=== PATIENT | female | born 1955 ===

== ENCOUNTER 2025-08-22 14:03 | Outpatient (AMB) | payer OTHER, SELFPAY ==
--- NOTE | 2025-08-22 14:04 | A.OFFVIS_ITS ---
Intake Visit Reasons: tremor HPI Comments Details: 70 years old right-handed woman with underlying history of ulcerative colitis and type 2 diabetes, and anxiety with depression was here for tremor. She is presenting for follow-up for management of worsening tremor. The patient has a permanent tremor, which has reportedly worsened, although it is considered mild. The tremor is predominantly in the left hand. The patient also has a history of depression and anxiety, and a previous m edication prescribed for anxiety was not effective and caused side effects. The tremor is noted to worsen when attention is drawn to it. Past medical history is significant for diabetes, for which the patient takes Mounjaro. The patient also takes lisinopril and denies any history of heart conditions. Parkinson's disease has been ruled out. Review of Systems Narrative - General: Reports not feeling well. - Neurological: Reports a worsening, permanent tremor primarily in the left hand. - Psychiatric: Reports experiencing significant depression and anxiety. Physical Exam Neuro Other: Mental Status: Alert and oriented to person, place, and time. Normal attention. Normal spontaneous speech, fluency, and comprehension. Cranial Nerves: CN II: Visual doran full to confrontation, visual acuity intact. CN III, IV, : Pupils equal, round, reactive to light and accommodation. Extraocular movements are normal. CN V: Facial sensation is normal. CN VII: Facial movements symmetrical. CN VIII: Hearing intact to bedside conversation is normal. CN IX, X: Palate elevates symmetrically. CN XI: Shoulder shrug and head turn symmetrical. CN XII: Tongue midline without atrophy or fasciculations. Extrapyramidal: Full facial expressions and blinking. No rigidity. Movements are appropriate with mild left hand postural tremor Speech: Normal; no dysarthria or tremor. Assessment & Plan Assessment & Plan (1) Tremor: Code(s): R25.1 - Tremor, unspecified Category: Medical (2) Anxiety: Code(s): F41.9 - Anxiety disorder, unspecified Category: Medical Plan Impression: 1. Mild essential tremor 2. Anxiety with depression Recommendations: 1. She is advised to discuss her behavioral issues with a therapist or a psychiatrist. Sertraline that I prescribed apparently did not help. 2. Tremor is not severe enough to warrant any treatment but she and her daughter, especially her daughter, was very concerned and I have asked them to try propranolol 10 mg twice a day, which might help with tremor and also with anxiety. Medications: New propranolol 10 mg PO BID 180 tabs 0RF Coding Level of Care Code Est Pt Level 3 (76882) Diagnoses Tremor R25.1 Anxiety F41.9
--- OUTSIDE RECORDS SUMMARY | 2025-08-22 16:57 | XMS_ITS | Encounter Summary ---
Author Organization [employer] Address [address] [place] [address] Care Team Providers Care Grades 1 Through 6 Teacher Name Role Phone Kishore Rowland MD Primary Care Provider Reason for Visit * Reason Onset Date Comments Med Refill 08/15/2025 Encounter Details Date Type Department Care Team (Late st Contact Info) Description 08/15/2025 Telephone Endocrinology - [address] [phone] Victoria Dunne PA [address] [place] [address] Social History Tobacco Use Types Packs/Day Years Used Date Smoking Tobacco: Never Smokeless Tobacco: Never Alcohol Use Standard Drinks/Week Comments No 0 (1 standard drink = 0.6 oz pur e alcohol) Comments No Sex and Gender Information Value Date Recorded Sex Assigned at Female 10/19/2024 8:13 AM EST Legal Sex Female 4:35 AM EST Gender Identity Female 10/19/2024 8:13 AM EST Sexual Orientation Not on file documented as of this encounter Ordered Prescriptions Prescription Sig Dispense Quantity Refills Last Filled Start Date End Date tirzepatide (Mounjaro) 2.5 mg/0.5 mL injectionIndication s:Type 2 diabetes mellitus with diabetic neuropathy, without long-term current use of insulin (CMS/HCC V24, CMS/HCC V28) Inject 0.5 mL (2.5 mg total) under the skin every 7 (seven) days. 2 mL 08/15/2025 documented in this encounter Progress Notes * Aster Metcalf RN - 08/17/2025 4:26 PM EST Called patient, she has already picked up the med * Geri Damon - 08/15/2025 4:21 PM EST Pt calling to follow up on request for Benjamin. * Matt Smith MA - 08/15/2025 10:55 AM EST Jazmin:07/05/25 Nov:10/05/25 Lab Results Component Value Date HGBA1C 8.5 (H) 07/05/2025 Lab Results Component Value Date NA 141 07/04/2025 K 4.5 07/04/2025 CL 106 07/04/2025 CO2 30 07/04/2025 GLUCOSE 231 07/05/2025 BUN 20 07/04/2025 CREATININE 0.76 07/04/2025 CALCIUM 10.1 07/04/2025 PROT 7.3 07/04/2025 ALBUMIN 3.6 07/04/2025 BILITOT 0.6 07/04/2025 AST 24 07/04/2025 ALT 59 07/04/2025 ALKPHOS 72 07/04/2025 EGFR 83 07/04/2025 documented in this encounter Plan of Treatment Upcoming Encounters Date Type Department Care Team (Late st Contact Info) Description 08/23/2025 2:45 PM EST Consult Orthopedic Surgery - [place] [address] 175 [facility] [address] [place] [phone] Arturo Ramirez DPNikos [address] [phone] 08/31/2025 12:30 PM EST Ancillary Procedure [facility] - [address] [place] [address] 10/05/2025 2:20 PM EST Office Visit Endocrinology - [place] [address] [place] [address] Dennis Shaffer MD [address] [place] [address] 12/04/2025 1:40 PM EDT Office Visit Gastroenterology - [address] 299 [facility] [address] [place] [phone] Luna Styles PA 299 [facility] [address] [place] [address] documented as of this encounter Visit Diagnoses Diagnosis Type 2 diabetes mellitus with diabetic neuropathy, without long-term current use of insulin ([facility] V24, [facility] V28) documented in this encounter Discontinued Medications Medication Sig Discontinue Reason Start Date End Da te tirzepatide (Mounjaro) 2.5 mg/0.5 mL injectionIndications:Typ e 2 diabetes mellitus with diabetic neuropathy, without long-term current use of insulin ([facility] V24, [facility] V28) Inject 0.5 mL (2.5 mg total) under the skin every 7 (seven) days. Reorder 07/05/2025 08/15/2025 documented as of this encounter Additional Health Concerns Assessment Noted Time PHQ-9 Depression Total Score: 0 08/01/20 2:57 PM EST documented as of this encounter Care Teams Grades 1 Through 6 Teacher Relationship Specialty Start Date End Date Kishore Rowland MD [address] [place] [address] PCP - General Internal Medicine 10/27/24 documented as of this encounter
--- OUTSIDE RECORDS SUMMARY | 2025-08-22 16:57 | XMS_ITS | Encounter Summary ---
Author Organization [facility] Address [address] [place] [address] Care Team Providers Care Wage And Salary Administrator Name Role Phone Kishore Rowland MD Primary Care Provider [phone] Encounter Details Date Type Department Care Team (Late Contact Info) Description 08/02/2025 Results Follow-Up Internal Medicine - [address] [phone] Kishore Rowland MD [address] [place] [phone] Social History Tobacco Use Types Packs/Day Years [...] on file documented as of this encounter Plan of Treatment Upcoming Encounters Date Type Department Care Team (Late Contact Info) Description 08/23/2025 2:45 PM EST Consult Orthopedic Surgery - [place] [address] [phone] Arturo Ramirez, DPM [address] [phone] 08/31/2025 12:30 PM EST Ancillary Procedure [facility] - [address] [place] [address] 10/05/2025 2:20 PM EST Office Visit Endocrinology - [place] [address] [place] [address] Dennis Shaffer MD [address] [place] [address] 12/04/2025 1:40 PM EDT Office Visit Gastroenterology - 299 [facility] 299 [facility] [address] [place] [address] Luna Styles PA 299 [facility] [address] [place] [address] documented as of this encounter Visit Diagnoses Not on filedocumented in this encounter Additional Health Concerns Assessment Noted Time PHQ-9 Depression Total Score: 0 08/01/20 2:57 PM EST documented as of this encounter Care Teams Wage And Salary Administrator Relationship Specialty Start Date End Date Kishore Rowland MD [address] [place] [phone] PCP - General Internal Medicine 10/27/24 documented as of this encounter
--- OUTSIDE RECORDS SUMMARY | 2025-08-22 16:57 | XMS_ITS | Encounter Summary ---
Author Organization [facility] Address [address] [place] [address] Care Team Providers Care Heel Cutter Name Role Phone Kishore Rowland MD Primary Care Provider [phone] Encounter Details Date Type Department Care Team (Late Contact Info) Description 07/06/2025 Results Follow-Up Endocrinology - [address] [phone] Victoria Dunne PA 305 [facility] [place] [address] Social History Tobacco Use Types Packs/Day Years [...] 2:45 PM EST Consult Orthopedic Surgery - [place] [address] [phone] Arturo Ramirez, DPM [address] [phone] 08/31/2025 12:30 PM EST Ancillary Procedure [facility] - [address] [place] [address] 10/05/2025 2:20 PM EST Office Visit Endocrinology - [place] [address] [place] [address] Dennis Shaffer MD [address] [place] [address] 12/04/2025 1:40 PM EDT Office Visit Gastroenterology - 299 [facility] 299 [facility] [address] [place] [address] Luna Styles PA 299 [facility] [address] [place] [address] documented as of this encounter Visit Diagnoses Not on filedocumented in this encounter Care Teams Heel Cutter Relationship Specialty Start Date End Date Kishore Rowland MD [address] [place] [address] PCP - General Internal Medicine 10/27/24 documented as of this encounter
--- OUTSIDE RECORDS SUMMARY | 2025-08-22 16:57 | XMS_ITS | Clinical Summary ---
Author Organization [address] Address [address] [place] [phone] Phone Care Team Providers Care Call Center Rn Name Role Phone Kishore Rowland MD Primary Care Provider [phone] Allergies No known active allergies Medications blood-glucose meter kit 1 Strip by Does not apply route 2 times daily. Active psyllium (Daily Fiber, psyllium-aspar t,) 3.4 gram packet Take 1 Packet by mouth daily. 3 Active aspirin (ASPIR-81 ORAL) Take 81 mg by mouth daily. Active ferrous sulfate 325 mg (65 mg elemental iron) tablet Take 1 tablet by mouth daily. Active pravastatin (PRAVACHOL) 40 mg tablet TOME 1 TABLETA POR VIA ORAL TODOS LOS KAY AL ACOSTARSE 90 tablet 1 5 Active metFORMIN XR (GLUCOPHAGE-XR ) 500 mg 24 hr tabletIndicati ons:Type 2 diabetes mellitus with diabetic neuropathy, without long-term current use of insulin ([facility] V24, CMS/[facility] V28) TOME 2 TABLETA POR VIA ORAL DOS VECES AL KERI CON LAS COMIDAS 360 tablet 1 5 Active empagliflozin (Jardiance) 25 mg tabletIndicati ons:Type 2 diabetes mellitus with diabetic neuropathy, without long-term current use of insulin ([facility] V24, CMS/[facility] V28) TOME 1 TABLETA POR VIA ORAL TODOS LOS KAY 90 tablet 3 5 Active blood-glucose meter (Accu-Chek Guide Glucose Meter) miscIndication s:Type 2 diabetes mellitus with diabetic microalbuminur ia, without long-term current use of insulin ([facility] V24, [facility] V28) Used to monitor blood sugar 1 each 5 Active omeprazole (PriLOSEC) [address] capsule Take 1 capsule (20 mg total) by mouth 1 (one) time each day. Do not crush or chew. 90 each 3 5 Active azaTHIOprine (IMURAN) 50 mg tablet Take 3 tablets (150 mg total) by mouth 1 (one) time each day. 270 tablet 4 5 08/09/20 26 Active tirzepatide (Mounjaro) 2.5 mg/0.5 mL injectionIndic ations:Type 2 diabetes mellitus with diabetic neuropathy, without long-term current use of insulin ([facility] V24, [facility] V28) Inject 0.5 mL (2.5 mg total) under the skin every 7 (seven) days. 2 mL 5 Active omeprazole (PriLOSEC) [address] capsule Take 1 Capsule by mouth daily. Take in am on empty stomach wait 30 and then eat to activate the medication 4 08/08/20 25 Discontinu ed(Reorder ) azaTHIOprine (IMURAN) 50 mg tablet TAKE 3 TABLETS (150 MG TOTAL) BY MOUTH 1 (ONE) TIME EACH DAY. 270 tablet 4 5 08/08/20 25 Discontinu ed(Reorder ) predniSONE (DELTASONE) 10 mg tablet Please take 4 pills of prednisone for 5 days, then take 3 pills of prednisone for 5 days, then take 2 pills of prednisone for 5 days, then took 1 pill of prednisone for 5 days, then take half a pill of prednisone for 5 days 60 tablet 1 5 08/01/20 25 Discontinu ed(Patient Discharge) tirzepatide (Mounjaro) 2.5 mg/0.5 mL injectionIndic ations:Type 2 diabetes mellitus with diabetic neuropathy, without long-term current use of insulin ([facility] V24, [facility] V28) Inject 0.5 mL (2.5 mg total) under the skin every 7 (seven) days. 2 mL 5 08/15/20 25 Discontinu ed(Reorder ) polyethylene glycol (MIRALAX) 17 gram packet Take 17 g by mouth 1 (one) time each day for 3 days. 51 g 5 08/04/20 25 ondansetron (ZOFRAN) 4 mg tabletIndicati ons:Chronic nausea Take 1 tablet (4 mg total) by mouth every 8 (eight) hours if needed for nausea or vomiting for up to 7 days. 20 tablet 5 08/08/20 25 Active Problems Problem Noted Date Diagnosed Date Hydronephrosis of left kidney 10/19/2024 UC (ulcerative colitis) ([facility] V24, [facility] V2 8) 08/10/2024 Secondary hypertension 12/17/2021 Microalbuminuria 12/04/2020 Type II diabetes mellitus wi th renal manifestations ([facility] V24, [facility] V28) 12/04/2020 Type 2 diabetes mellitus wit h diabetic neuropathy ([facility] V24, [facility] V28) 07/19/2019 Overview (08/10/2024): DM type 2, uncontrolled, with neuropathy Severe obesity (BMI 35.0-39. 9) with comorbidity ([facility] V24, [facility] V28) 08/11/2016 MARK (generalized anxiety disorder) 11/28/2014 Overview (08/10/2024): 12/02 sertraline gave shakes/lossof appetite Pain, abdominal, epigastric 08/02/2014 Hyperlipidemia 05/18/2013 Overview (08/10/2024): IMO update Ulcerative colitis, universal ([facility] V24, [facility] V28) 01/27/2013 Overview (08/10/2024): Confirmed at colonoscopy and biopsy 2012. Anemia 01/25/2013 GI bleed 01/20/2013 Overview (08/10/2024): Dr lerma previous pcp Encounters Date Type Department Care Team Description 08/15/2025 Telephone Endocrinology - [address] [phone] Victoria Dunne PA 08/07/2025 4:28 PM EST - 08/07/2025 11:59 PM EST Hospital Encounter [facility] CT Scan [address] [place] [phone] Ulcerative pancolitis without complication ([facility] V24, [facility] V28); H/O renal calculi Discharge Disposition: Home or Self Care 08/02/2025 Results Follow-Up Internal Medicine - [address] [phone] Kishore Rowland MD 08/01/2025 3:40 PM EST Lab Draw Station [address] Hyperlipidemia, unspecified hyperlipidemia type 08/01/2025 3:00 PM EST Office Visit Internal Medicine - [address] [phone] Kishore Rowland MD Chest pain, unspecified type (Primary Dx); Type 2 diabetes mellitus with diabetic neuropathy, without long-term current use of insulin ([facility] V24, [facility] V28); Hyperlipidemia, unspecified hyperlipidemia type; Chronic nausea; Palpitation 07/12/[address] [facility] [address] [phone] Luna Styles PA 07/09/2025 Results Follow-Up Gastroenterology [facility] [address] [phone] Luna Styles PA 07/06/2025 Results Follow-Up Endocrinology - [address] [phone] Victoria Dunne PA 07/05/2025 2:30 PM EDT Office Visit Endocrinology [address] [phone] Victoria Dunne PA Type 2 diabetes mellitus with diabetic neuropathy, without long-term current use of insulin ([facility], [facility] V28) (Primary Dx); Secondary hypertension; Hyperlipidemia, unspecified hyperlipidemia type; Microalbuminuria 07/04/2025 3:20 PM EDT Office Visit Gastroenterology - [place] [address] [facility] [address] [place] [phone] Luna Styles PA Ulcerative pancolitis without complication ([facility] V24, [facility] V28) (Primary Dx); H/O renal calculi; LUQ abdominal pain 06/18/2025 Telephone Internal Medicine - [facility] [address] [facility] [place] [phone] Kishore Rowland MD 06/18/2025 Telephone Gastroenterology - [place] [address] [facility] [address] [place] [phone] Luna Styles PA from Last 3 Months Immunizations Immunization Administration Dates Next Due Influenza trivalent, 0.5mL ( Fluad) 65yo and older 06/30/2025,09/26/2024,06/28/2023,06/30,09/24/2020,07/19/2019 Pneumococcal conjugate 13 va lent (Prevnar 13, PCV13) 2mo and older 05/27/2018 Pneumococcal polysaccharide 23 valent (Pneumovax 23) 2yo and older 06/15/2014 Tdap Tetanus diptheria acell ular pertussis (Boostrix; Adacel) 7yo and older 04/26/2013 Surgical History Surgery Date Site/Laterality Comments HYSTERECTOMY 1998 PROCEDURE: HISTORICAL HYSTERECTOMY COLONOSCOPY 2004 PROCEDURE: MN COLONOSCOPY FLX DX W/COLLJ SPEC WHEN PFRMD; COMMENT: normal COLONOSCOPY W/ BIOPSIES 2012 PROCEDURE: MN COLONOSCOPY W/BIOPSY SINGLE/MULTIPLE; COMMENT: Firth ulcerative colitis COLONOSCOPY W/ BIOPSIES 12/27/15 PROCEDURE: MN COLONOSCOPY STOMA W/BIOPSY SINGLE/MULTIPLE; COMMENT: universal ulcerative colitis; stopped at hepatic flexure; no viral inclusion bodies. FLEXIBLE SIGMOIDOSCOPY PROCEDURE: MN SIGMOIDOSCOPY FLX DX W/COLLJ SPEC BR/WA IF PFRMD ESOPHAGOGASTRODUODENOSCOPY 2004 PROCEDURE: MN ESOPHAGOGASTRODUODENOSCOPY TRANSORAL DIAGNOSTIC; COMMENT: normal COLONOSCOPY 11/22/2019 PROCEDURE: HISTORICAL COLONOSCOPY; COMMENT: polyp Medical History Medical History Date Comments History of colon polyps 11/22/2019 DX:Histo ry of colon polyps UC (ulcerative colitis) ([facility] V24, [facility] V28) DX:UC (ulcerative colitis) ( [facility]) Esophageal reflux DX:Esophageal reflux Anxiety state DX:Anxiety state Diabetes mellitus type 2, co ntrolled, with complications ([facility], [facility] V28) DX:Diabetes mellitus type 2, controlled, with complications ([facility]) Hyperlipidemia DX:Hyperlipidemi a Essential hypertension DX:Essent ial hypertension Ulcerative colitis ([facility], [facility] V28) DX:Ulcerative colitis (HCC) Abdominal bloating DX:Abdominal bloating Colon polyp DX:Colon polyp Ulcerative colitis ([facility] V[facility], [facility] V28) DX:Ulcerative colitis (HCC) Left sided abdominal pain DX:Lef t sided abdominal pain Family History Medical History Relation Name Comments Diabetes Mother Hyperlipidemia Mother Hypertension Mother Breast cancer Other m grt aunts x 2 Relation Name Status Comments Brother Alive 6,not sure.very vague history Father lung cancer Mother Alive Other m grt aunts x 2 Sister Alive 7 Social History Tobacco Use Types Packs/Day Years Used Date Smoking Tobacco: Never Smokeless Tobacco: Never Tobacco Cessation:Counseling Given: Not Answered Alcohol Use Standard Drinks/Week Comments No 0 (1 standard drink = 0.6 oz pur e alcohol) Comments No Sex and Gender Information Value Date Recorded Sex Assigned at Female 10/19/2024 8:13 AM EST Legal Sex Female 4:35 AM EST Gender Identity Female 10/19/2024 8:13 AM EST Sexual Orientation Not on file Obstetrics History Para Term AB IAB SAB Ectopic Multiple Livin g Live Births 5 5 5 5 Date Outcome GA Total Labor Labor/2nd/3rd Weight Sex Type Anes PTL Homa A1 A5 Name Clin Term Term Term Term Term Last Filed Vital Signs Vital Sign Reading Time Taken Comments Blood Pressure 135/89 08/01/2025 2:58 PM EST aut o Pulse 93 08/01/2025 2:58 PM EST Temperature 36.1 C (96.9 F) 07/05/2025 2:32 PM EDT Respiratory Rate 18 10/19/2024 3:37 PM EST Oxygen Saturation 97% 07/04/2025 3:35 PM EDT Inhaled Oxygen Concentration - - Weight 87.3 kg (192 lb 6.4 oz) 08/01/2025 2:58 P M EST Height 160 cm (5' 3 ) 08/01/2025 2:58 PM EST Body Mass Index 34.08 08/01/2025 2:58 PM EST Plan of Treatment Upcoming Encounters Date Type Department Care Team (Late st Contact Info) Description 08/23/2025 2:45 PM EST Consult Orthopedic Surgery - [place] [address] [facility] 250 [place] [phone] Arturo Ramirez, DPM [address] [phone] 08/31/2025 12:30 PM EST Ancillary Procedure [facility] [address] [facility] 101 [place] [phone] 10/05/2025 2:20 PM EST Office Visit Endocrinology - [place] [address] [place] [phone] Dennis Shaffer MD [address] [place] [address] 12/04/2025 1:40 PM EDT Office Visit Gastroenterology - [address] [facility] [address] [phone] Luna Styles PA 299 [facility] 419 [place] [address] Health Maintenance Due Date Last Done Comments COVID-19 Vaccine (#1) 1958 Diabetes: Annual Foot Exam 1963 Zoster Vaccines (1 of 2) 1972 RSV Immunization Adult Patients (1 - Risk 50-74 years 1-dose series) 2003 Pneumococcal Vaccine: 50+ Years (3 of 3 - PCV20 or PCV21) 06/15/2019 05/27/2018, 06/15/2014 Social Influencers of Health Screening 08/29/2022 DTaP,Tdap,and Td Vaccines (2 - Td or Tdap) 04/26/2023 04/26/2013 Falls Risk Assessment 05/10/2025 05/10/2024 Medicare Annual Wellness Visit 05/10/2025 05/10/2024 Diabetes: Annual Retina Eye Exam 10/17/2025 10/17/2024, 10/07/2023 Diabetes: Blood Sugar Control Test (HGBA1C) 01/03/2026 07/05/2025, 03/26/2025, 09/15/2024, Additional history exists Diabetes: Annual GFR (Glomerular Filtration Rate) 07/04/2026 07/04/2025, 10/19/2024, 09/26/2024, Additional history exists Hypertension/CHF/CAD Annual BMP Blood Test 07/04/2026 07/04/2025, 10/19/2024, 09/26/2024, Additional history exists Diabetes: Annual Urine Albumin-Creatinine Ratio (uACR) 07/05/2026 07/05/2025, 06/28/2023 Breast Cancer Screening 05/03/2027 05/03/20 25, 04/27/2024, 04/27/2024, Additional history exists Cholesterol Screening (Lipid Panel) 08/01/2030 08/01/2025, 09/26/2024, 02/03/2024, Additional history exists Colorectal Cancer Screening: Colonoscopy 09/16/2033 09/16/2023 Osteoporosis Screening (Bone Density Screening) 05/03/2035 05/03/2025, 11/16/2022 Hepatitis C Screening Completed 07/23/2022 Influenza Vaccine Completed 06/30/2025, , 06/28/2023, Additional history exists Depression Screening Completed 08/01/2025, 05/10/20 24 HIB Vaccines Aged Out No longer eligi ble based on patient's age to complete this topic HPV Vaccines Aged Out No longer eligi ble based on patient's age to complete this topic Hepatitis A Vaccines Aged Out No long er eligible based on patient's age to complete this topic Hepatitis B Vaccines Aged Out No long er eligible based on patient's age to complete this topic IPV Vaccines Aged Out No longer eligi ble based on patient's age to complete this topic MMR Vaccines Aged Out No longer eligi ble based on patient's age to complete this topic Meningococcal ACWY Vaccine Aged Out N o longer eligible based on patient's age to complete this topic Meningococcal B Vaccine Aged Out No l onger eligible based on patient's age to complete this topic RSV Immunization Patients Under 20 months Aged Out No longer eligible based on patient's age to complete this topic Varicella Vaccines Aged Out No longer eligible based on patient's age to complete this topic Medical Devices Implanted Type Area Spice Fumigator Device Identifier Shelf Expiration Date Model / Serial / Lot Stent 7fr Multi Vl - Sn/A - [id number] Implanted:Qty: 1 on 10/19/2024 by Terrell Bedolla MD at [facility] Stents Left: Ureter [employer]GYNECOLG Y 05/29/2027 [id number] / N/A / [id number] Procedures Procedure Name Priority Date/Time Associated Diagnosis Comments CT ABDOMEN PELVIS W CONTRAST Routine 08/07/2025 5:07 PM EST Ulcerative pancolitis without complication ([facility] V24, [facility] V28) H/O renal calculi LIPID PANEL WITH REFLEX TO DIRECT LDL Routine 08/01/2025 3:37 PM EST Hyperlipidemia, unspecified hyperlipidemia type HEMOGLOBIN A1C Routine 07/05/2025 3:20 PM EDT Type 2 diabetes mellitus with diabetic neuropathy, without long-term current use of insulin ([facility] V24, [facility] V28) MICROALBUMIN CREATININE URINE RATIO Routine 07/05/2025 3:20 PM EDT Microalbuminuria POC GLUCOSE Routine 07/05/2025 2:42 PM EDT Type 2 diabetes mellitus with diabetic neuropathy, without long-term current use of insulin ([facility] V24, [facility] V28) CBC WITH AUTO DIFFERENTIAL Routine 07/04/2025 4:02 PM EDT Ulcerative pancolitis without complication ([facility]/HCC V24, [facility] V28) H/O renal calculi CBC AND DIFFERENTIAL Routine 07/04/2025 4:02 PM EDT Ulcerative pancolitis without complication (CMS/HCC V24, CMS/HCC V28) H/O renal calculi COMPREHENSIVE METABOLIC PANEL Routine 07/04/2025 4:02 PM EDT Ulcerative pancolitis without complication (CMS/HCC V24, CMS/HCC V28) H/O renal calculi C-REACTIVE PROTEIN Routine 07/04/2025 4: 02 PM EDT Ulcerative pancolitis without complication (CMS/HCC V24, CMS/HCC V28) H/O renal calculi THIOPURINE METABOLITES Routine 07/04/2025 4:02 PM EDT Ulcerative pancolitis without complication (CMS/HCC V24, CMS/HCC V28) H/O renal calculi BD BONE DENSITY DXA AXIAL SKELETON Routine 05/03/2025 1:52 PM EDT Postmenopausal MG MAMMO DIGITAL SCREENING W LINCOLN BILAT Routine 05/03/2025 1:17 PM EDT Encounter for screening mammogram for breast cancer EXTERNAL DIABETIC RETINA EYE EXAM 10/17/2024 HM DEPRESSION SCREENING Routine 05/10/2024 FALLS RISK ASSESSMENT Routine 05/10/2024 COLONOSCOPY Routine 09/16/2023 HEPATITIS C SCREENING Routine 07/23/2022 from Last 3 Months or Most Recently Relevant to Health Maintenance Results * CT Abdomen Pelvis w Contrast (08/07/2025 5:07 PM EST) Anatomical Region Laterality Modality Body Computed Tomogra phy 08/07/2025 6:22 PM EST Impressions 08/07/2025 6:29 PM EST 1. No acute abnormality in the abdomen or pelvis. No fluid collection or free air. 2. Thickening of the right and proximal transverse colon likely related to underdistention with submucosal fat deposition compatible with chronic infectious/inflammatory process. There is prominent pericolonic vascularity but no acute superimposed pericolonic inflammatory change. -------- FINAL REPORT -------- Dictated By: Juan Carlos Gunn Dictated Date: 08/07/2025 18:22 ET Assigned Physician: Juan Carlos Gunn Reviewed and Electronically Signed By: Juan Carlos Gunn Signed Date: 08/07/2025 18:29 ET Workstation ID: [id number] Transcribed By: Self Edit Transcribed Date: 08/07/2025 18:22 ET Narrative 08/07/2025 6:29 PM EST PROCEDURE: CT ABDOMEN/PELVIS WITH CONTRAST INDICATION: LUQ abd pain, hx of UC TECHNIQUE: CT of the abdomen and pelvis following the intravenous administration of 90cc Isovue 370. Multiplanar reformats. The examination was performed utilizing dose reduction techniques. Total DLP 1337 COMPARISON: 10/19/24 FINDINGS: LOWER THORAX: Lung bases are clear. HEPATOBILIARY: No focal liver lesions. Cholecystectomy. SPLEEN: No focal lesion. PANCREAS: No focal mass or ductal dilatation. ADRENALS: No nodules. KIDNEYS/URETERS: Nonobstructing calculus upper pole left kidney. Large renal cyst. There are peripelvic cysts. There is no hydronephrosis or ureteral calculus. PELVIC ORGANS/BLADDER: Hysterectomy. PERITONEUM / RETROPERITONEUM: No ascites or free air. No retroperitoneal lymphadenopathy. VESSELS: Scattered atherosclerotic calcifications throughout the aorta and its major branches. No aneurysm. GI TRACT: There is thickening of the right and proximal transverse colon likely related to underdistention with submucosal fat deposition compatible with chronic infectious/inflammatory process. There is prominent pericolonic vascularity but no acute superimposed pericolonic inflammatory change. No bowel obstruction. Normal caliber appendix. BONES AND SOFT TISSUES: Scattered degenerative changes seen throughout the bones. Soft tissues are unremarkable. Procedure Note Juan Carlos Gunn MD - 08/07/2025 PROCEDURE: CT ABDOMEN/PELVIS WITH CONTRAST INDICATION: LUQ abd pain, hx of UC TECHNIQUE: CT of the abdomen and pelvis following the intravenousadministration of 90cc Isovue 370. Multiplanar reformats. The examinationwas performed utilizing dose reduction techniques. Total DLP 1337 COMPARISON: 10/19/24 FINDINGS: LOWER THORAX: Lung bases are clear. HEPATOBILIARY: No focal liver lesions. Cholecystectomy. SPLEEN: No focal lesion. PANCREAS: No focal mass or ductal dilatation. ADRENALS: No nodules. KIDNEYS/URETERS: Nonobstructing calculus upper pole left kidney. Largerenal cyst. There are peripelvic cysts. There is no hydronephrosis orureteral calculus. PELVIC ORGANS/BLADDER: Hysterectomy. PERITONEUM / RETROPERITONEUM: No ascites or free air. No retroperitoneallymphadenopathy. VESSELS: Scattered atherosclerotic calcifications throughout the aorta andits major branches. No aneurysm. GI TRACT: There is thickening of the right and proximal transverse colonlikely related to underdistention with submucosal fat depositioncompatible with chronic infectious/inflammatory process. There isprominent pericolonic vascularity but no acute superimposed pericolonicinflammatory change. No bowel obstruction. Normal caliber appendix. BONES AND SOFT TISSUES: Scattered degenerative changes seen throughout thebones. Soft tissues are unremarkable. IMPRESSION: 1. No acute abnormality in the abdomen or pelvis. No fluid collection orfree air. 2. Thickening of the right and proximal transverse colon likely relatedto underdistention with submucosal fat deposition compatible with chronicinfectious/inflammatory process. There is prominent pericolonicvascularity but no acute superimposed pericolonic inflammatory change. -------- FINAL REPORT -------- Dictated By: Juan Carlos Gunn Dictated Date: 08/07/2025 18:22 ET Assigned Physician: Juan Carlos Gunn Reviewed and Electronically Signed By: Juan Carlos Gunn Signed Date: 08/07/2025 18:29 ET Workstation ID: [id number] Transcribed By: Self Edit Transcribed Date: 08/07/2025 18:22 ET us Luna [facility] IMG CT PROCEDURES Final Resul t * Lipid panel with reflex to direct LDL (08/01/2025 3:37 PM EST) Cholesterol 192 0 - 200 mg/dL LAB CHEMISTRY METHOD 08/01/2025 6:57 PM EST [facility] Triglycerides 150 0 - 150 mg/dL LAB CHEMISTRY METHOD 08/01/2025 6:57 PM EST [facility] HDL 73 >=40 mg/dL LAB CHEMISTRY METHOD 08/01/2025 6:57 PM EST [facility] LDL Calculated 89 0 - 100 mg/dL LAB CHEMISTRY METHOD 08/01/2025 6:57 PM EST [facility] Comment:Estimated LDL Calcul ated using equation: Total cholesterol - HDL cholesterol - (Triglycerides/5) VLDL Cholesterol Stan 30 mg/dL LAB CHEMISTRY METHOD 08/01/2025 6:57 PM EST [facility] Non HDL Chol. (LDL+VLDL) 119 <145 mg/dL LAB CHEMISTRY METHOD 08/01/2025 6:57 PM EST [facility] Chol/HDL Ratio 2.6 0.0 - 4.4 LAB CHEMISTRY METHOD 08/01/2025 6:57 PM EST [facility] Blood Venous blood specimen / Unknown Venipuncture / Unknown 08/01/2025 3:37 PM EST 08/01/2025 3:37 PM EST us Kishore Rowland MD LAB BLOOD ORDERABLES Final Res ult [facility] [address] [place] [address], * Microalbumin creatinine urine ratio (07/05/2025 3:20 PM EDT) Creatinine, Urine 103.0 mg/dL LAB CHEMISTRY METHOD 07/05/2025 5:43 PM EDT [facility] Microalb, Ur 10.8 0.0 - 29.0 mg/L LAB CHEMISTRY METHOD 07/05/2025 5:43 PM EDT [facility] Microalb/Creat Ratio 10 <30 mg/g creat LAB CHEMISTRY METHOD 07/05/2025 5:43 PM EDT [facility] Urine Urine specimen from urethra / Unknown Non-blood Collection / Unknown 07/05/2025 3:20 PM EDT 07/05/2025 3:20 PM EDT [facility] URINE ORDERABLES Final Result [facility] [address] [place] [address], [place] [phone] * (ABNORMAL) Hemoglobin A1c (07/05/2025 3:20 PM EDT) Hemoglobin A1C 8.5(H) <6.5 % LAB CHEMISTRY METHOD 07/05/2025 9:42 PM EDT [facility] Mean Bld Glu Estim. 197 mg/dL LAB CHEMISTRY METHOD 07/05/2025 9:42 PM EDT [facility] Blood Venous blood specimen / Unknown Venipuncture / Unknown 07/05/2025 3:20 PM EDT 07/05/2025 3:20 PM EDT [facility] BLOOD ORDERABLES Final Result Performing Organization Address [facility]/ZIP Co de Phone Number [facility] [address] [place] [address], [place] [phone] * POC glucose manually resulted (07/05/2025 2:42 PM EDT) Pathologist [facility] Glucose POC 231 mg/dL Blood Capillary blood specimen / Unknown 07/05/2025 2:42 PM EDT Victoria [facility] POINT OF CARE TEST ENTER/ED IT ORDERABLES Final Result * (ABNORMAL) Thiopurine metabolites (07/04/2025 4:02 PM EDT) 6-Thioguanine 192(L) 235 - 400 07/12/2025 1:35 PM EDT [facility] Comment: UNITS OF MEASURE: pmol/8x10(8)RBC (Note) This test was developed and its analytical performance characteristics have been determined by [employer]. It has not been cleared or approved by the FDA. This assay has been validated pursuant to the CLIA regulations and is used for clinical purposes. 6-Methylmercaptop urine 9899(H) <5700 07/12/2025 1:35 PM EDT [facility] Comment: UNITS OF MEASURE: pmol/8x10(8)RBC (Note) These results are useful in assessing a patient's metabolism of azathioprine (AZA) or 6-mercaptopurine (6-MP). A 6-thioguanine (6-TG) level greater than 235 pmol/8x10(8) RBC has been associated with remission and very high levels have been associated with leucopenia. 6-methylmercaptopurine (6-MMP) levels greater than 5700 pmol/8x10(8) RBC may be associated with hepatoxicity. This test was developed and its analytical performance characteristics have been determined by [employer]. It has not been cleared or approved by the FDA. This assay has been validated pursuant to the CLIA regulations and is used for clinical purposes. [facility] [address] [facility] [facility] [id number] Kisha Castanon MD, PhD Test Performed at: [facility] [address] [address], [address] [place] [address] Margaret Castanon MD, PhD Blood Venous blood specimen / Unknown Venipuncture / Unknown 07/04/2025 4:02 PM EDT 07/04/2025 4:02 PM EDT [facility] BLOOD ORDERABLES Final Re sult [facility] [address] [place] [address] * (ABNORMAL) CBC auto differential (07/04/2025 4:02 PM EDT) WBC 6.9 4.8 - 10.8 K/[facility] HEMETOLOGY METHOD 07/04/2025 6:16 PM EDT [facility] RBC 5.00(H) 3.80 - 4.80 M/[facility] HEMETOLOGY METHOD 07/04/2025 6:16 PM EDT [facility] Hemoglobin 14.5 11.5 - 16.0 g/dL LAB HEMETOLOGY METHOD 07/04/2025 6:16 PM EDT [facility] Hematocrit 46.6 35.0 - 47.0 % LAB HEMETOLOGY METHOD 07/04/2025 6:16 PM EDT [facility] MCV 93.8 79.0 - 98.0 FL LAB HEMETOLOGY METHOD 07/04/2025 6:16 PM EDT [facility] MCH 29.2 27.0 - 32.0 pcg LAB HEMETOLOGY METHOD 07/04/2025 6:16 PM EDT [facility] MCHC 31.1(L) 32.0 - 37.0 g/dL LAB HEMETOLOGY METHOD 07/04/2025 6:[facility] RDW 13.8 11.0 - 15.0 % LAB HEMETOLOGY METHOD 07/04/2025 6:16 PM EDT [facility] Platelets 230 130 - 400 K/mcL LAB HEMETOLOGY METHOD 07/04/2025 6:16 PM [facility] MPV 11.5(H) 7.0 - 11.0 FL LAB HEMETOLOGY METHOD 07/04/2025 6:16 PM [facility] NRBC 0.0 <1.0 % LAB HEMETOLOGY METHOD 07/04/2025 6:16 PM EDT [facility] NRBC Absolute 0.00 <0.10 K/mcL LAB HEMETOLOGY METHOD 07/04/2025 6:16 PM EDT [facility] Neutrophils Relative 76.3 % LAB HEMETOLOGY METHOD 07/04/2025 6:16 PM [facility] Lymphocytes Relative 13.3 % LAB HEMETOLOGY METHOD 07/04/2025 6:16 PM EDT [facility] Monocytes Relative 8.7 % LAB HEMETOLOGY METHOD 07/04/2025 6:16 PM EDT [facility] Eosinophils Relative 0.9 % LAB HEMETOLOGY METHOD 07/04/2025 6:16 PM EDT [facility] Basophils Relative 0.4 % LAB HEMETOLOGY METHOD 07/04/2025 6:16 PM EDT [facility] Immature Granulocytes Relative 0.4 % LAB HEMETOLOGY METHOD 07/04/2025 6:16 PM EDT [facility] Neutrophils Absolute 5.29 1.50 - 7.00 K/mcL LAB HEMETOLOGY METHOD 07/04/2025 6:16 PM EDT [facility] Lymphocytes Absolute 0.92(L) 1.00 - 5.00 K/mcL LAB HEMETOLOGY METHOD 07/04/2025 6:16 PM EDT [facility] Monocytes Absolute 0.60 0.20 - 1.00 K/mcL LAB HEMETOLOGY METHOD 07/04/2025 6:16 PM EDT [facility] Eosinophils Absolute 0.06 0.00 - 0.50 K/mcL LAB HEMETOLOGY METHOD 07/04/2025 6:16 PM EDT [facility] Basophils Absolute 0.03 0.00 - 0.20 K/mcL LAB HEMETOLOGY METHOD 07/04/2025 6:16 PM EDT [facility] Immature Granulocytes Absolute 0.03 0.00 - 0.03 K/mcL LAB HEMETOLOGY METHOD 07/04/2025 6:16 PM EDT [facility] Blood Venous blood specimen / Unknown Venipuncture / Unknown 07/04/2025 4:02 PM EDT 07/04/2025 4:02 PM EDT us Luna [facility] BLOOD ORDERABLES Final Re sult [facility] [address] [place] [address], [place] [phone] * (ABNORMAL) C-reactive protein (07/04/2025 4:02 PM EDT) [facility] C-Reactive Protein 0.53(H) <=0.50 mg/dL LAB CHEMISTRY METHOD 07/04/2025 6:51 PM EDT [facility] Blood Venous blood specimen / Unknown Venipuncture / Unknown 07/04/2025 4:02 PM EDT 07/04/2025 4:02 PM EDT [facility] BLOOD ORDERABLES Final Re sult [facility] [address] [place] [address], [place] [phone] * (ABNORMAL) Comprehensive metabolic panel (07/04/2025 4:02 PM EDT) [facility] Sodium 141 133 - 145 mmol/L LAB CHEMISTRY METHOD 07/04/2025 6:59 PM EDT [facility] Potassium 4.5 3.5 - 5.5 mmol/L LAB CHEMISTRY METHOD 07/04/2025 6:59 PM T [facility] Chloride 106 96 - 110 mmol/L LAB CHEMISTRY METHOD 07/04/2025 6:59 PM EDT [facility] CO2 30 21 - 32 mmol/L LAB CHEMISTRY METHOD 07/04/2025 6:59 PM EDT [facility] Anion Gap 5 3 - 11 LAB CHEMISTRY METHOD 07/04/2025 6:59 PM EDT [facility] Glucose 198(H) 70 - 100 mg/dL LAB CHEMISTRY METHOD 07/04/2025 6:59 PM EDT [facility] BUN 20 5 - 25 mg/dL LAB CHEMISTRY METHOD 07/04/2025 6:59 PM EDT [facility] Creatinine 0.76 0.50 - 1.10 mg/dL LAB CHEMISTRY METHOD 07/04/2025 6:59 PM EDT [facility] eGFR 83 >=60 mL/min/1. 73m2 LAB CHEMISTRY METHOD 07/04/2025 6:59 PM EDT [facility] Comment:Calculation based on the Chronic Kidney Disease Epidemiology Collaboration (CKD-EPI) equation refit without adjustment for race. BUN/Creatinine Ratio 26.3 LAB CHEMISTRY METHOD 07/04/2025 6:59 PM EDT [facility] Calcium 10.1 8.5 - 10.5 mg/dL LAB CHEMISTRY METHOD 07/04/2025 6:59 PM T [facility] AST (SGOT) 24 10 - 42 unit/L LAB CHEMISTRY METHOD 07/04/2025 6:59 PM [facility] ALT (SGPT) 59 10 - 60 unit/L LAB CHEMISTRY METHOD 07/04/2025 6:59 PM T [facility] Alkaline Phosphatase 72 42 - 121 unit/L LAB CHEMISTRY METHOD 07/04/2025 6:59 PM T [facility] Total Protein 7.3 6.0 - 8.0 g/dL LAB CHEMISTRY METHOD 07/04/2025 6:59 PM [facility] Albumin 3.6 3.2 - 5.0 g/dL LAB CHEMISTRY METHOD 07/04/2025 6:59 PM T [facility] Total Bilirubin 0.6 0.0 - 1.4 mg/dL LAB CHEMISTRY METHOD 07/04/2025 6:59 PM [facility] Blood Venous blood specimen / Unknown Venipuncture / Unknown 07/04/2025 4:02 PM EDT 07/04/2025 4:02 PM EDT us Luna [facility] BLOOD ORDERABLES Final Re sult [facility] [address] [place] [address], * BD Bone Density DXA Axial Skeleton (05/03/2025 1:52 PM EDT) Anatomical Region Laterality Modality Wrist, Hip, L-spine Bone Densito metry 05/03/2025 2:12 PM EDT Impressions 05/03/2025 2:15 PM EDT Normal bone mineral density by WHO criteria. [facility] Department of Internal Medicine recommends using National Osteoporosis Foundation (NOF) guidelines in treatment decisions related to osteoporosis. NOF guidelines suggest considering treatment for postmenopausal women and men aged 50 or older presenting with the following: History of hip or vertebral fracture. T-score = -2.5 (DXA) at the femoral neck, total hip, or spine, after appropriate evaluation to exclude secondary causes. Low bone mass (T-score between -1.0 and -2.5 at the femoral neck or spine) AND a 10-year probability of a hip fracture = 3% OR a 10-year probability of a major osteoporosis-related fracture = 20% based on the [place]-adapted WHO algorithm Please note that all treatment decisions require clinical judgment and consideration of individual patient factors, including patient preferences, co-morbidities, previous drug use, risk factors not captured in the FRAX model (e.g., frailty, falls, vitamin D deficiency, increased bone turnover, interval significant decline in bone density) and possible under- or over-estimation of fracture risk by FRAX. Optional alternative screening schedule based on melvin Sanchez., [facility] October 08, 2011 for patients with osteopenia (based on hip BMD T-score) is as follows: * advanced osteopenia (T scores -2.00 to -2.49), BMD testing every year * moderate osteopenia (T scores -1.50 to -1.99), BMD testing every 5 years mild osteopenia or normal BMD (T scores -1.50 and higher), BMD testing every 15 years -------- FINAL REPORT -------- Dictated By: Cristina Tyson Dictated Date: 05/03/2025 14:12 ET Assigned Physician: Cristina Tyson Reviewed and Electronically Signed By: Cristina Tyson Signed Date: 05/03/2025 14:15 ET Workstation ID: [id number] Transcribed By: Self Edit Transcribed Date: 05/03/2025 14:12 ET Narrative 05/03/2025 2:15 PM EDT BONE DENSITY SCAN (DEXA): FINDINGS: Lumbar Spine T-score is -0.7. (SD relative to 20-29 y/o adult) Z-score is 1.5. (SD relative to age matched peers) This is considered normal by WHO criteria. Left Hip T-score is -0.4. Z-score is 1.3. This is considered normal by WHO criteria. Comparison exam(s): 11/16/2022. No statistically significant change in bone mineral density. Procedure Note Cristina Tyson MD - 05/03/2025 BONE DENSITY SCAN (DEXA): FINDINGS: Lumbar Spine T-score is -0.7. (SD relative to 20-29 y/o adult) Z-score is 1.5. (SD relative to age matched peers) This is considered normal by WHO criteria. Left Hip T-score is -0.4. Z-score is 1.3. This is considered normal by WHO criteria. Comparison exam(s): 11/16/2022. No statistically significant change inbone mineral density. IMPRESSION: Normal bone mineral density by WHO criteria. [facility] Department of Internal Medicine recommendsusing National Osteoporosis Foundation (NOF) guidelines in treatmentdecisions related to osteoporosis. NOF guidelines suggest consideringtreatment for postmenopausal women and men aged 50 or older presentingwith the following: History of hip or vertebral fracture. T-score = -2.5 (DXA) at the femoral neck, total hip, or spine, afterappropriate evaluation to exclude secondary causes. Low bone mass (T-score between -1.0 and -2.5 at the femoral neck or spine)AND a 10-year probability of a hip fracture = 3% OR a 10-year probabilityof a major osteoporosis-related fracture = 20% based on the [place]-adapted WHOalgorithm Please note that all treatment decisions require clinical judgment andconsideration of individual patient factors, including patientpreferences, co-morbidities, previous drug use, risk factors not capturedin the FRAX model (e.g., frailty, falls, vitamin D deficiency, increasedbone turnover, interval significant decline in bone density) and possibleunder- or over-estimation of fracture risk by FRAX. Optional alternative screening schedule based on leonardo Sanchez al., [facility] for patients with osteopenia (based on hip BMD T-score)is as follows: * advanced osteopenia (T scores -2.00 to -2.49), BMD testing every year * moderate osteopenia (T scores -1.50 to -1.99), BMD testing every 5years mild osteopenia or normal BMD (T scores -1.50 and higher), BMD testingevery 15 years -------- FINAL REPORT -------- Dictated By: Cristina Tyson Dictated Date: 05/03/2025 14:12 ET Assigned Physician: Cristina Tyson Reviewed and Electronically Signed By: Cristina Tyson Signed Date: 05/03/2025 14:15 ET Workstation ID: [id number] Transcribed By: Self Edit Transcribed Date: 05/03/2025 14:12 ET us Victoria [facility] IMG DXA PROCEDURES Final Re sult * MG Mammo Digital Screening w [place] bilat (05/03/2025 1:17 PM EDT) Anatomical Region Laterality Modality Breast Bilateral Mammography 05/07/2025 7:54 AM EDT Impressions 05/07/2025 7:54 AM EDT No mammographic evidence of malignancy. BREAST DENSITY: B - There are scattered areas of fibroglandular density. BI-RADS CATEGORY: 1 - NEGATIVE RECOMMENDATION: Screening bilateral mammogram is recommended in 1 year. MAMMO LOCATION: [facility], [address] [place] [address], [id number], . -------- FINAL REPORT -------- Dictated By: Cristina Tyson Dictated Date: 05/07/2025 07:54 ET Assigned Physician: Cristina Tyson Reviewed and Electronically Signed By: Cristina Tyson Signed Date: 05/07/2025 07:54 ET Workstation ID: [id number] Transcribed By: Self Edit Transcribed Date: 05/07/2025 07:54 ET Narrative 05/07/2025 7:54 AM EDT EXAM: Screening Mammogram CLINICAL: 69 years old, Female, routine annual exam. COMPARISON: 04/27/2024 and 04/20/2023 TECHNIQUE: Bilateral MLO and CC views were obtained digitally with 3-D mammogram (digital breast tomosynthesis). Computer-aided detection was utilized in evaluation of this exam (CAD). FINDINGS: No new suspicious mass, architectural distortion, or suspicious calcifications. Procedure Note Cristina Tyson MD - 05/07/2025 EXAM: Screening Mammogram CLINICAL: 69 years old, Female, routine annual exam. COMPARISON: 04/27/2024 and 04/20/2023 TECHNIQUE: Bilateral MLO and CC views were obtained digitally with 3-Dmammogram (digital breast tomosynthesis). Computer-aided detection wasutilized in evaluation of this exam (CAD). FINDINGS: No new suspicious mass, architectural distortion, or suspiciouscalcifications. IMPRESSION: No mammographic evidence of malignancy. BREAST DENSITY: B - There are scattered areas of fibroglandular density. BI-RADS CATEGORY: 1 - NEGATIVE RECOMMENDATION: Screening bilateral mammogram is recommended in 1 year. MAMMO LOCATION: [facility], [address] [place] [address], [id number], . -------- FINAL REPORT -------- Dictated By: Cristina Tyson Dictated Date: 05/07/2025 07:54 ET Assigned Physician: Cristina Tyson Reviewed and Electronically Signed By: Cristina Tyson Signed Date: 05/07/2025 07:54 ET Workstation ID: [id number] Transcribed By: Self Edit Transcribed Date: 05/07/2025 07:54 ET us Kishore Rowland MD IMG BI PROCEDURES Final Result * External Diabetic Retina Eye Exam Report (10/17/2024) Anatomical Region Laterality Modality Ultrasound us Provider [facility] US PROCEDURES Final Result * Hm Falls Risk Assessment (05/10/2024) Pathologist [facility] Falls Risk Assessment Abstracted Historical Provider MD HEALTH MAINTENANCE Final Result * Depression Screening (05/10/2024) Depression Screening Abstracted Historical Provider MD HEALTH MAINTENANCE Final Result * Colonoscopy (09/16/2023) Pathologist [facility] Colonoscopy No interpretation , Abstracted Anatomical Region Laterality Modality Other Historical Provider MD HEALTH MAINTENANCE Final Result * Hepatitis C Screening (07/23/2022) Pathologist [facility] Hepatitis C Screening Abstracted [facility] Provider MD HEALTH MAINTENANCE Final Result from Last 3 Months or Most Recently Relevant to Health Maintenance Insurance MEDICAID - [place] [employer] MEDICARE Advance Directives * Full Code - Default (Latest Code Status on File) Date Activated Date Inactivated Comments 10/19/2024 11:01 AM 10/19/2024 6:18 PM This is ord er is used when code status has not been discussed with the patient, or code status is otherwise unknown/unconfirmed To update the patient's code status, place a code status order. Do not modify or discontinue any currently active code status orders. Care Teams Call Center Rn Relationship Specialty Start Date End Date Kishore Rowland MD [address] [place] [id number] PCP - General Internal Medicine 10/27/24
--- OUTSIDE RECORDS SUMMARY | 2025-08-22 16:57 | XMS_ITS | Encounter Summary ---
Author Organization [facility] Address [address] [place] [address] Care Team Providers Care Cnc Supervisor Name Role Phone Kishore Rowland MD Primary Care Provider [phone] Encounter Details Date Type Department Care Team (Late Contact Info) Description 10/27/2024 Lab Requisition [facility] - Main Lab [address] [facility] [place] [address] Lakesha Koehler, PA [address] [facility] [address] [place] [address] Dysuria Social History Tobacco Use Types Packs/Day Years Used Date Smoking Tobacco: Never Smokeless Tobacco: Never Alcohol Use Standard Drinks/Week Comments No 0 (1 standard drink = 0.6 oz pur e alcohol) Comments Unknown Sex and Gender Information Value Date Recorded Sex Assigned at Female 10/19/2024 8:13 AM EST Legal Sex Female 4:35 AM EST Gender Identity Female 10/19/2024 8:13 AM EST Sexual Orientation Not on file documented as of this encounter Plan of Treatment Upcoming Encounters Date Type Department Care Team (Late Contact Info) Description 08/23/2025 2:45 PM EST Consult Orthopedic Surgery - [place] [address] [address] Arturo Ramirez, DPM [address] [address] 08/31/2025 12:30 PM EST Ancillary Procedure [facility] [address] [place] [id number] 10/05/2025 2:20 PM EST Office Visit Endocrinology - [place] [address] [place] [address] Dennis Shaffer MD [address] [place] [address] 12/04/2025 1:40 PM EDT Office Visit Gastroenterology - [address] [facility] [address] [facility] [address] [place] [address] Luna Styles PA [address] [facility] [address] [place] [address] documented as of this encounter Procedures Procedure Name Priority Date/Time Associated Diagnosis Comments BACTERIAL IDENTIFICATION AND SUSCEPTIBILITY, AEROBIC Routine 10/26/2024 12:00 AM EST Dysuria documented in this encounter Results * Bacterial identification and susceptibility, aerobic (10/26/2024 12:00 AM EST) Culture, Bacterial ID and Sensitivity Multiple bacterial morphotypes present consistent with either contamination or urogenital bronson. Suggest repeat specimen, if clinically indicated. 10/27/2024 11:09 AM EST [facility] Other Urine specimen from urethra / Unknown 10/26/2024 10/27/2024 10:51 AM EST us [facility] MICROBIOLOGY - GENERAL ORDER LAMAR Final Result [facility] [address] [place] [address], documented in this encounter Visit Diagnoses Diagnosis Dysuria documented in this encounter Additional Health Concerns Infection Onset Date Last Indicated Resolved Time Gastrointestinal Rule-Out 12/13/2024 12/13/2024 9:34 PM EDT documented as of this encounter Care Teams Cnc Supervisor Relationship Specialty Start Date End Date Kishore Rowland MD [address] [place] [address] PCP - General Internal Medicine 10/27/24 documented as of this encounter
== END 2025-08-22 14:18 | disposition home or self-care (01) ==
PROVIDERS: Visit Provider Psychiatry & Neurology Neurology
DX: R25.1 Tremor, unspecified (principal); F41.9 Anxiety disorder, unspecified
CPT/HCPCS: 99213